=== PATIENT | female | born 1940 | race Caucasian/White ===

== ENCOUNTER 2020-03-06 18:28 | Emergency (ER) | payer MEDICARE, OTHER ==
[~2020-03-06] VITALS: Ht 149.9 cm; Wt 88.6 kg
[2020-03-06] MEDS ORDERED: HYDROcodone/APAP 5/325 TABLET PO ONE (19:00)
[2020-03-06] MEDS ORDERED: HYDROcodone/APAP 5/325 TABLET ONE (19:01)
--- NOTE | 2020-03-06 19:24 | NUR ---
PT DIDN'T WANT TO TAKE NORCO, STATES, "IT GIVES ME THE HEEBIE JEEBIES". ERP NOTIFIED. PT MEDICATED WITH TRAMADOL FOR R WRIST/HAND PAIN. PT TALKING WITH FAMILY ON THE PHONE, UNDERSTANDS POC.
[2020-03-06] MEDS ORDERED: APIX2.5T PO (20:13)
[2020-03-06] MEDS ORDERED: FURO20TA3 PO (20:15)
[2020-03-06] MEDS ORDERED: SIMV20TA19 PO (20:15)
[2020-03-06] MEDS ORDERED: CARV3.122 PO (20:15)
[2020-03-06] MEDS ORDERED: CYAN-27 PO (20:15)
[2020-03-06] MEDS ORDERED: CHOL3000 PO (20:15)
[2020-03-06 20:31] LABS: HCT (SEDRATE) 36.7 % (34.6-47.8)
[2020-03-06 20:36] LABS: BASOPHILS # (AUTO) 0.04 x10^3/uL (0-0.1); BASOPHILS % (AUTO) 0 % (0-1); EOSINOPHILS # (AUTO) 0.11 x10^3/uL (0-0.4); EOSINOPHILS % (AUTO) 1 % (1-7); LYMPHOCYTES # (AUTO) 1.73 x10^3/uL (1-3.4); LYMPHOCYTES % (AUTO) 19 % (22-44); MD NO; MEAN CORPUSCULAR HEMOGLOBIN 28.4 pg (27.0-34.8); MEAN CORPUSCULAR HGB CONC 32.4 g/dL (32.4-35.8); MEAN CORPUSCULAR VOLUME 87.7 fL (80-100); MEAN PLATELET VOLUME 8.6 fL (7.4-10.4); MONOCYTES # (AUTO) 0.87 x10^3/uL (0.2-0.8); MONOCYTES % (AUTO) 10 % (2-9); NEUTROPHILS # (AUTO) 6.23 x10^3/uL (1.8-6.8); NEUTROPHILS % (AUTO) 69 % (42-75); PLATELET COUNT 281 x10^3/uL (130-400); RED BLOOD COUNT 4.21 x10^6/uL (3.82-5.3); RED CELL DISTRIBUTION WIDTH 14.7 % (9.6-15.2)
[2020-03-06 20:43] LABS: ALBUMIN 3.4 g/dL (3.4-5.0); ANION GAP 9 mmol/L (5-15); CALCIUM 9.3 mg/dL (8.5-10.1); CHLORIDE 105 mmol/L (98-107); CREATININE 1.45 mg/dL (0.55-1.02)
[2020-03-06] MEDS ORDERED: KETOROLAC 30 MG/1 ML ONE (21:21)
[2020-03-06] MEDS ORDERED: KETOROLAC 30 MG/1 ML IM ONE (21:30)
--- NOTE | 2020-03-06 21:41 | NUR ---
PT MEDICATED WITH TORADOL PER ORDERS. ERP WAS IN FOR RECHECK AND SPOKE WITH PT'S DAUGHTER ON THE PHONE. PT UNDERSTANDS POC.
[2020-03-06] MEDS ORDERED: COLCHICINE 0.6 MG CAPSULE ONE (21:49)
[2020-03-06] MEDS ORDERED: CEPHALEXIN 500 MG CAPSULE ONE (21:49)
[2020-03-06] MEDS ORDERED: CEPHALEXIN 500 MG CAPSULE PO ONE (22:00)
[2020-03-06] MEDS ORDERED: COLCHICINE 0.6 MG CAPSULE PO ONE (22:00)
[2020-03-06 22:04] VITALS: BP 135/96
--- NOTE | 2020-03-06 22:04 | NUR ---
PT MEDICATED PER ORDERS. D/C INSTRUCTIONS, MEDS & F/U APPT RV'WD WITH PT, SHE VERBALIZES UNDERSTANDING. RX GIVEN X3. 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
== END 2020-03-06 22:36 | disposition home or self-care (01) ==
LOC: ED 18:57
DX: L03.113 Cellulitis of right upper limb (principal); M10.031 Idiopathic gout, right wrist; I48.91 Unspecified atrial fibrillation; M19.90 Unspecified osteoarthritis, unspecified site; Z85.3 Personal history of malignant neoplasm of breast
CPT/HCPCS: 36415; 73110; 73130; 80048; 82040; 83605; 84145; 84550; 85025; 85651; 86140; 87040; 96372; 99284; J1885